=== PATIENT | male | born 1970 | race Hispanic/Latino ===

== ENCOUNTER 2017-01-07 14:13 | Emergency (ER) | payer SELFPAY ==
[2017-01-07 14:17] VITALS: BP 151/80
--- NOTE | 2017-01-07 14:58 | ED SKIN/ALLERGY COMPLAINT ---
History of Present Illness General Chief Complaint: Skin Rash/ Abcess Stated Complaint: RASH ALL OVER Source: patient, old records Exam Limitations: no limitations Vital Signs & Intake/Output Vital Signs & Intake/Output Vital Signs Date Time Temp Pulse Resp B/P B/P Pulse O2 O2 Flow FiO2 Mean Ox Delivery Rate 01/07 1417 96.0 85 16 151/80 97 Room Air Allergies Coded Allergies: No Known Allergies (01/07/17) Reconcile Medications Hydroxyzine HCl 50 MG TABLET 1 TAB PO TID PRN ITCHING Methylprednisolone. (Medrol) 4 MG TAB.DS.PK 1 DP PO AD SHINGLES 6 on day 1 then reduce by one tablet daily until gone Oxycodone HCl/Acetaminophen (Percocet 5-325 MG Tablet) 5 MG-325 MG TABLET 1 TAB PO BID SHINGLES Rosuvastatin Calcium (Crestor) 10 MG TABLET 1 TAB PO DAILY HEART HEALTH ( Reported) Triage Note: PT C/O RASH TO MOY ARMS X3 WEEKS. STATES HE WENT TO URGENT CARE LAST WEEK AND TOOK A SAMPLE OF IT AND UNSURE WHAT IT COULD BE. STATES RASH IS ITCHY. Triage Nurses Notes Reviewed? yes Onset: Gradual Duration: week(s): (3), constant Timing: recent history Severity: moderate, severe Severity Numbers: 8 Location: extremities Possible Factors: no cause identified No Modifying Factors: none Associated Symptoms: DENIES HPI: 46-year-old male with history of hiV presents to the ER for evaluation complaining of a rash itchy painful to the left upper extremity has been getting progressively worse. He saw an urgent care yesterday prescribed him L cycle here and clindamycin. Has not followed up with his infectious disease doctor yet regarding the symptoms no history of similar rashes no sick contacts or recent travel. He states that it is now radiating up his arm into his back and chest. It is worse with light palpation. No fever no chills. He states his HIV has been well-controlled on medication no fever chills weight loss nausea vomiting chest pain shortness of breath (SAMANTHA POSADA) Past History Travel History Traveled to [place] past 21 day No Medical History Any Pertinent Medical History? see below for history Other Medical Hx: hiv Surgical History Surgical History: none Psychosocial History What is your primary language Italian Tobacco Use: Never used Family History Hx Contributory? No (SAMANTHA POSADA) Review of Systems Review of Systems Constitutional: Reports: see HPI. All Other Systems: Reviewed and Negative Comments Review of systems: See HPI, All other systems negative. Constitutional, no chills no fever, no malaise HEENT: no sore throat no congestion, no ear pain Cardiovascular: No chest pain , no palpitation Skin: See HPI Respiratory: No dyspnea no cough no sputum GI: No nausea no vomiting, no diarrhea, : No dysuria No hematuria, Muscle skeletal: No joint pain, no joint swelling, no back pain, no neck pain, Neurologic: No numbness no headache Psych: No stress Heme/endocrine: No bruising Immunology: No lymphadenopathy (SAMANTHA POSADA) Physical Exam Physical Exam General Appearance: well developed/nourished, no apparent distress, alert Comments: Well-developed well-nourished patient in no apparent distress. HEENT: Atraumatic, extraocular motion intact Neck: Supple, FROM Back: FROM Cardiovascular: Regular rate and rhythms no murmurs rubs or gallops, Respiratory: Chest nontender.There were no bony deformities, no asymmetry. No respiratory distress. Patient speaking in full complete sentences. Breath sounds clear to auscultation bilaterally: NO W/R/R Extremities: full range of motion Neuro: awake, alert, and oriented to person, place and time. There were no obvious focal neurologic abnormalities. Skin: Warm & dry; vesicular rash noted to the left upper extremity with small vesicles noted to the left anterior chest wall and left upper back, there is no rash to the face or the right side of the body Psych: Mood affect normal, normal memory normal judgment. (SAMANTHA POSADA) Progress Differential Diagnosis: abscess/cellulitis, contact dermatitis, erythema multiforme, shingles, urticaria Plan of Care: Symptoms are consistent with zoster he is currently on valacyclovir which he's been on for the past 2 days prescription for prednisone, hydroxyzine Percocet provided for pain return precautions were discussed advise close follow up with his infectious disease doctor tomorrow I discussed with the patient at length all of their results. I had an extensive conversation regarding need for close follow up with their primary care physician this week as well as return precautions. I answered all of their questions, they feel comfortable with the plan and follow-up care. I discussed with the patient/family the medications that they will receive. I gave them signs and symptoms that could indicate an adverse reaction. I have advised them to limit their activities until they can see how they respond to the medication. (SAMANTHA POSADA) Departure Departure Time of Disposition: 1534 Disposition: HOME OR SELF CARE Condition: Stable Clinical Impression Primary Impression: Zoster Referrals: PATIENT HAS NO PRIMARY CARE DR (PCP/Family) Additional Instructions: CONTINUE TAKING YOUR VALTREX. MEDROL DOSE SERGEY, AND HYDROXYZINE DIRECTED. PERCOCET FOR BREAKTHROUGH PAIN. THIS IS A NARCOTIC AND HIGHLY ADDICTIVE, NO DRIVING OR DRINKING ALCOHOL WHILE TAKING. THESE WERE SENT TO YOUR PHARMACY Departure Forms: Customer Survey General Discharge Information Prescriptions: Current Visit Scripts Methylprednisolone. (Medrol) 1 DP PO AD #1 DP 6 on day 1 then reduce by one tablet daily until gone Oxycodone HCl/Acetaminophen (Percocet 5-325 MG Tablet) 1 TAB PO BID #10 TAB Hydroxyzine HCl 1 TAB PO TID PRN ITCHING #30 TAB (SAMANTHA POSADA) PA/CAMERA MECHANIC Co-Sign Statement Statement: ED Attending supervision documentation- [] I saw and evaluated the patient. I have also reviewed all the pertinent lab results and diagnostic results. I agree with the findings and the plan of care as documented in the PA's/CAMERA MECHANIC's documentation. [X] I have reviewed the ED Record and agree with the PA's/CAMERA MECHANIC's documentation. [] Additions or exceptions (if any) to the PAs/CAMERA MECHANIC's note and plan are summarized below: [] (ROX SALGADO DO
[2017-01-07] MEDS ORDERED: MEDROL4 M2 PO (15:38)
[2017-01-07] MEDS ORDERED: PERCOCET 5-3251 EACH PO (15:38)
[2017-01-07] MEDS ORDERED: HYDROXYZINE HCL50 M1 PO (15:38)
[2017-01-07] MEDS ORDERED: CRESTOR10 M1 PO (15:48)
== END 2017-01-07 15:49 ==
LOC: ERH 14:13
DX: B02.9 Zoster without complications (principal)